=== PATIENT | female | born 1955 | race Caucasian/White ===

== ENCOUNTER → 2017-03-17 | Outpatient (CLI) | payer BC, MEDICARE ==
[~2017-03-17] MED LIST: GEODON80 MG PO; KLONOPIN1 MG PO; LEXAPRO20 MG PO; NEURONTIN300 MG PO; NORCO 10-325 T1 EACH PO; PRAVACHOL40 MG PO; TRAZODONE HCL100 MG PO; VICTOZA 3-0.6 MG/0.1 INJ
--- NOTE | 2017-03-17 15:51 | Diagnostic Imaging Report ---
PROCEDURE: Frontal and lateral views of the chest. COMPARISON: None. INDICATIONS: SHORTNESS OF BREATH FINDINGS: Lines/tubes: None. Lungs: The lungs are well inflated and clear. There is no evidence of pneumonia or pulmonary edema. Pleura: There is no pleural effusion or pneumothorax. Heart and mediastinum: The heart and the mediastinum are normal. Bones: No acute bony abnormality. IMPRESSION: 1. No acute cardiopulmonary abnormalities. Liang Saxena M.D. Dictated by: Liang Saxena M.D. on 03/17/2017 at 16:00 Electronically approved by: Liang Saxena M.D. on 03/17/2017 at 16:00
== END ==
LOC: RAD 13:22
PROVIDERS: ATTEND Internal Medicine
DX: R06.00 Dyspnea, unspecified (principal)
CPT/HCPCS: 71020

== ENCOUNTER 2017-05-05 13:39 | Emergency (ER) | payer BC, MEDICARE ==
--- OUTSIDE RECORDS SUMMARY | 2017-05-05 13:44 | XMS REPORT ---
Author Author [facility] Address Unknown Phone Unavailable Care Team Providers Care Supervisor [employer] Name Role Phone BRIGITTE ROMERO Unavailable Unavailable SAMMY BUTTERFIELD Unavailable Unavailable Problems This patient has no known problems. Allergies, Adverse Reactions, Alerts This patient has no known allergies or adverse reactions. Medications This patient has no known medications. Results Test Description Test Time Test Comments Text Results Atomic Results Result Comments CHEST 2 VIEWS [place] [address] Patient Name: CESAR JUAREZ MR #: [id number] : 1955 Age/Sex: 61/F Req # : [id number] Adm Physician: Ordered by: BRIGITTE ROMERO MD Report #: [id number] Location: RAD Room/Bed: Procedure: [id number] DX/CHEST 2 VIEWS Exam Date: 03/17/17 Exam Time: 1330 REPORT STATUS: Signed PROCEDURE: Frontal and lateral views of the chest. COMPARISON: None. INDICATIONS: SHORTNESS OF BREATH FINDINGS: Lines/tubes: None. Lungs: The lungs are well inflated and clear. There is no evidence of pneumonia or pulmonary edema. Pleura: There is no pleural effusion or pneumothorax. Heart and mediastinum: The heart and the mediastinum are normal. Bones: No acute bony abnormality. IMPRESSION: 1. No acute cardiopulmonary abnormalities. Meek Saxena M.D. Dictated by: Meek Saxena M.D. on 03/17/2017 at 16:00 Electronically approved by: Meek Saxena M.D. on 03/17/2017 at 16:00 Dictated By: MEEK SAXENA MD 99 Transcribed By: CAT on 03/17/171599 COPY TO: BRIGITTE ROMERO MD KNEE RIGHT THREE VIEWS [place] [address] Patient Name: CESAR JUAREZ MR #: [id number] : 1955 Age/Sex: 60/F Req #: [id number] Adm Physician: Ordered by: SAMMY BUTTERFIELD MD Report #: [id number] Location: ER Room/Bed: ___ Procedure: [id number] DX/KNEE RIGHT THREE VIEWS Exam Date: Exam Time: REPORT STATUS: Signed KNEE RIGHT THREE VIEWS HISTORY: Pain status post fall COMPARISON: None FINDINGS: Bones: No displaced fracture. Bipartite patella present Osseous alignment is within normal limits. Joints: Chronic degenerative changes predominantly involving the medial compartment Soft tissues: The soft tissues appear unremarkable. IMPRESSION: No acute radiographic abnormality. Signed by: Dr. Silvino Marcano M.D. on 10/22/2016 12:58 AM Dictated By: SILVINO MEJIA MD Transcribed By: PRIYANKA on 10/22/1657 COPY TO: SAMMY BUTTERFIELD MD
== END 2017-05-05 14:40 | disposition left against medical advice (07) ==
LOC: ER 13:39
DX: R05 Cough (principal)

== ENCOUNTER → 2017-07-28 | Day surgery (SDC) | payer BC, MEDICARE ==
[~2017-07-28] MED LIST changes: +FENTANYL CITRATE/PF 100MCG/2 ML INJ ONE; +INSULIN REGULAR, HUMAN 100 UNIT/1 ML 3ML VIAL ONE; +LIDOCAINE HCL 2% LOCAL INJ 5 ML SDV VIAL INJ ONE; +METFORMIN HCL500 MG PO; +MIDAZOLAM HCL 2 MG/2 ML VIAL ONE; +PEPCID20 MG; +PROPOFOL IV EMULSION 10 MG/ML 50 ML VIAL ONE
--- OUTSIDE RECORDS SUMMARY | 2017-07-28 10:02 | XMS REPORT | Continuity of Care Document ---
Author Author [facility] Organization [facility] Address [address] [place] [address] Phone Unavailable Care Team Providers Care Clinic Office Manager Name Role Phone BRIGITTE ROMERO MD PCP Insurance Providers Guarantor Cesar Bacon Address [address] [place] [address] [facility] Policy Number [id number] Subscriber's Name Geovanni Bacon Relationship 01 Group Number [id number] Group Name [employer]. Effective Date 16 Payer Medicare A & B Policy Number [id number] Subscriber's Name Cesar Bacon Relationship 18 Self / Same As Patient Effective Date 05 Advance Directives Directive Response Recorded Date/Time Does the patient have an advance directive? No 08/05/13 5:37pm If yes, is advance directive on file with [facility]? No 08/05/13 5:37pm If not on file with [facility] will patient provide a copy? No 03/17/17 1:21pm Do you have a Directive to Physician? No 05/05/17 2:47pm Do you have a Medical Power of Director [facility]? No 03/02/18 2:47pm Do you have an out of hospital Do Not Resuscitate Order? No 05/05/17 2:47pm Do you have any special needs we should be aware of? No 05/05/17 2:47pm Do you have a support person here with you today? Yes 05/05/17 2:47pm Did patient receive Notice of Privacy Practices? Yes 05/05/17 2:47pm Did patient receive patient rights and responsibilities? Yes 05/05/17 2:47pm Problems No problem information available. Medications Current Home Medications Medication Dose Units Route Directions Days Qty Instructions Start Date Clonazepam (Klonopin) 1 Mg Tablet 1 Mg Oral 1AM/2HS Escitalopram Oxalate (Lexapro) 20 Mg Tablet 20 Mg Oral Daily Gabapentin (Neurontin) 300 Mg Capsule 300 Mg Oral Three Times A Day Hydrocodone Bit/Acetaminophen ([place] 10-325 Tablet) 1 Each Tablet Oral As Needed Liraglutide (Victoza 3-Yusuf) 0.6 Mg/0.1 Ml Pen.injctr 0.6 Mg Injection Daily Pravastatin Sodium (Pravachol) 40 Mg Tablet 40 Mg Oral Daily Trazodone Hcl 100 Mg Tablet 100 Mg Oral 2HS Ziprasidone Hcl (Geodon) 80 Mg Capsule 80 Mg Oral Bedtime Social History Social History Problem Response Recorded Date/Time Onset Date Status Hx Psychiatric Problems Yes 08/05/2013 5:37pm Not Applicable Not Applicable Hx Eating Disorder No 08/05/2013 5:37pm Not Applicable Not Applicable Hx Substance Use Disorder No 08/05/2013 5:37pm Not Applicable Not Applicable Hx Depression Yes 08/05/2013 5:37pm Not Applicable Not Applicable Hx Alcohol Use No 08/05/2013 5:37pm Not Applicable Not Applicable Hx Substance Use Treatment No 08/05/2013 5:37pm Not Applicable Not Applicable Hx Physical Abuse No 08/05/2013 5:37pm Not Applicable Not Applicable Hospital Discharge Instructions No hospital discharge instruction information available. Plan of Care Discharge Date 05/05/17 2:40pm Disposition AGAINST MEDICAL ADVICE Condition at Discharge Other Prescriptions See Medication Section Functional Status No functional status information available. Allergies, Adverse Reactions, Alerts Allergen Type Severity Reaction Status Last Updated cyclobenzaprine HCl Allergy Unknown Active 10/21/16 varenicline tartrate Allergy Unknown Active 10/21/16 Baclofen Allergy Unknown Active 10/21/16 Immunizations No immunization information available. Vital Signs No vital sign information available. Results No relevant diagnostic test, laboratory data and/or discharge summary information available. Procedures Procedure Status Date Provider(s) X-ray of chest, two views Active 03/17/17 BRIGITTE ROMERO MD Encounters Encounter Location Arrival/Admit Date Discharge/Depart Date Attending Provider Registered Emergency Room [facility] 05/05/17 1:39pm CHRIS BEGUM MD Registered Clinic [facility] 03/17/17 1:22pm BRIGITTE ROMERO MD Departed Emergency Room [facility] 10/21/16 11:20pm 10/22 2:10am SAMMY BUTTERFIELD MD
--- NOTE | 2017-07-28 14:58 | Operative Report ---
DATE OF PROCEDURE: July 28, 2017 REFERRING PHYSICIAN: Dr. Brigitte Romero PROCEDURES PERFORMED 1. Esophagogastroduodenoscopy with biopsies. 2. Colonoscopy with polypectomy. INDICATIONS FOR EGD: History of heartburn and indigestion. INDICATIONS FOR COLONOSCOPY: Colorectal cancer screening, personal history of colon polyps, constipation. MEDICATION: Patient was done under MAC. Please see anesthesiologist's note. PROCEDURE: With the patient in the left lateral decubitus position, the flexible fiberoptic Olympus gastroscope was introduced into the esophagus under direct visualization without any difficulty. There was some patchy erythema noted in the distal esophagus. The scope was then advanced with ease into the stomach. Mucosa overlying the antrum and the body revealed some patchy erythema and low-grade to moderate edema, and biopsies were obtained and sent to stain for H. pylori. The pylorus was of normal contour and shape. It was intubated with ease, and the scope was advanced all the way to the 2nd portion of the duodenum. The scope was then withdrawn slowly. Mucosa overlying the proximal 2nd portion and the duodenal bulb appeared to be within normal limits. The scope was then withdrawn back into the stomach and retroflexed, and the mucosa overlying the fundus and the cardia appeared to be within normal limits. The scope was then straightened out. It was subsequently withdrawn. Patient tolerated the procedure well. IMPRESSION 1. Distal esophagitis, mild. 2. Gastritis, biopsied. Biopsies sent to stain for H. pylori. PLAN: Follow up histology. Initiate Protonix 40 mg 1 p.o. q.a.m. a.c. The patient was then turned around. After adequate lubrication of the anal canal, a flexible fiberoptic Olympus colonoscope was inserted into the rectum with ease and advanced all the way to the cecum. Two polyps were snared from the cecum. Two polyps were snared from the proximal ascending colon, and a large sessile polyp approximately 1.5 cm in size was snared and hemoclipped in the distal ascending colon. Two polyps were snared from the transverse colon. There was scattered diverticular disease mainly involving the distal descending and the sigmoid colon. Two polyps were hot biopsied from the sigmoid. Rectum appeared to be within normal limits. The scope was then retroflexed into the distal rectum, and small internal hemorrhoids were noted, none of which was actively bleeding. The scope was then straightened out. It was subsequently withdrawn. Patient tolerated the procedure well. IMPRESSION 1. Cecal polyps snared times 2. 2. Proximal ascending colon 2 polyps snared. 3. Distal ascending colon 1.5 cm sessile polyp snared and polypectomy site prophylactically hemoclipped. 4. Transverse colon polyps times 2 snared. 5. Diverticulosis. 6. Sigmoid colon polyps times 2 hot biopsied. 7. Internal hemorrhoids, none actively bleeding. PLAN: Follow up histology. Initiate high-fiber, low-fat diet. Initiate high-fiber supplement. Patient will need a followup colonoscopy in 1 to 2 years. Job#: [id number] cc:BRIGITTE ROMERO MD
== END | disposition home or self-care (01) ==
LOC: OR 10:00
PROVIDERS: ATTEND Internal Medicine Gastroenterology
DX: Z12.11 Encounter for screening for malignant neoplasm of colon (principal); D12.0 Benign neoplasm of cecum; D12.2 Benign neoplasm of ascending colon; D12.3 Benign neoplasm of transverse colon; K29.70 Gastritis, unspecified, without bleeding; K20.9 Esophagitis, unspecified; K57.30 Diverticulosis of large intestine without perforation or abscess without bleeding; K64.8 Other hemorrhoids; M79.7 Fibromyalgia; I10 Essential (primary) hypertension; E78.5 Hyperlipidemia, unspecified; E11.9 Type 2 diabetes mellitus without complications; K75.9 Inflammatory liver disease, unspecified; F32.9 Major depressive disorder, single episode, unspecified; F41.9 Anxiety disorder, unspecified; Z01.810 Encounter for preprocedural cardiovascular examination; Z79.84 Long term (current) use of oral hypoglycemic drugs; Z87.891 Personal history of nicotine dependence
CPT/HCPCS: 36415; 43239; 45384; 45385; 82948; 93005; J2001; J2250; 45378